=== PATIENT | female | born 1950 | race Caucasian/White ===

== ENCOUNTER 2024-07-29 09:28 | Inpatient (IN) | payer MEDICARE, OTHER ==
[2024-07-29] MEDS ORDERED: Melatonin 3 MG Tab PO PRN (15:41)
[2024-07-29] MEDS ORDERED: Bisacodyl 10 MG Supp RECTAL PRN (15:44)
[2024-07-29] MEDS ORDERED: oxyCODONE 5 MG Tab PO PRN ×2 (15:44)
[2024-07-29] MEDS ORDERED: Scopalamine 1mg/3day Transdermal Patch TOP PRN (15:44)
[2024-07-29] MEDS ORDERED: Magnesium Hydroxide 400 MG/5 ML Susp 30 ML Cup PO PRN (15:44)
[2024-07-29] MEDS ORDERED: Bisacodyl 5 MG Tab PO PRN (15:44)
[2024-07-29] MEDS: Acetaminophen 325 MG Tab PO SCH (16:28)
[2024-07-29] MEDS: Calcium Carbonate 500 MG Tablet PO SCH (17:43)
[2024-07-29] MEDS: Sennosides/Docusate Sodium 50-8.6 MG Tab PO SCH (20:42)
[2024-07-29] MEDS: Polyethylene Glycol 3350 Powder 17 GM Packet PO SCH (20:42)
[2024-07-30] MEDS: Aspirin 325 MG Tab.EC PO SCH (08:44)
[2024-07-30] MEDS: Lisinopril 5 MG Tab PO SCH (08:45)
[2024-07-30] MEDS: Propranolol 80 MG Cap.ER PO SCH (08:45)
[2024-07-31 06:22] LABS: BASOPHILS ABSOLUTE AUTO 0.1 x10-3/uL (0.0-0.1); BASOPHILS PERCENT AUTO 1.3 % (0.2-1.5); EOSINOPHILS ABSOLUTE AUTO 0.4 x10-3/uL (0.0-0.8); EOSINOPHILS PERCENT AUTO 3.6 % (0.6-8.1); HEMATOCRIT 35.2 % (34.2-48.2); HEMOGLOBIN 12.1 g/dL (11.4-15.5); LYMPHOCYTES ABSOLUTE AUTO 1.5 x10-3/uL (1.0-4.4); MEAN CORPUSCULAR HEMOGLOBIN 30.4 pg (23.9-33.9); MEAN CORPUSCULAR HGB CONC 34.3 g/dL (31.9-34.8); MEAN CORPUSCULAR VOLUME 88.6 fL (76.7-100.5); MONOCYTES PERCENT AUTO 9.9 % (4.4-15.7); NEUTROPHILS ABSOLUTE AUTO 7.1 x10-3/uL (1.5-6.3); NEUTROPHILS PERCENT AUTO 70.2 % (30.8-76.2); PLATELET COUNT,PLT 263 x10(3)uL (151-488); RED BLOOD CELL COUNT 3.97 x10(6)uL (3.60-5.20); RED CELL DISTRIBUTION WIDTH 13.3 % (12.3-16.5); WHITE BLOOD CELL COUNT,WBC 10.2 x10-3/uL (3.0-10.3)
[2024-08-02] MEDS: Acetaminophen 500 MG Tab PO SCH (20:48)
[2024-08-03] MEDS: Polyethylene Glycol 3350 Powder 17 GM Packet PO SCH (08:47)
[2024-08-03] MEDS: Lisinopril 10 MG Tab PO SCH (08:59)
[2024-08-03] MEDS: Ibuprofen 600 MG Tab PO PRN (16:59)
== END 2024-08-06 13:25 | disposition home or self-care (01) | DRG 561 ==
LOC: FB.MS 13:03
PROVIDERS: ADMIT Internal Medicine; ATTEND Family Medicine
DX: Z47.89 Encounter for other orthopedic aftercare (principal); G43.909 Migraine, unspecified, not intractable, without status migrainosus; I10 Essential (primary) hypertension; J44.9 Chronic obstructive pulmonary disease, unspecified; F17.210 Nicotine dependence, cigarettes, uncomplicated; H26.9 Unspecified cataract; F15.90 Other stimulant use, unspecified, uncomplicated; R53.81 Other malaise; Z96.641 Presence of right artificial hip joint; Z88.0 Allergy status to penicillin; Z88.8 Allergy status to other drugs, medicaments and biological substances; Z88.1 Allergy status to other antibiotic agents; Z91.041 Radiographic dye allergy status; Z79.1 Long term (current) use of non-steroidal anti-inflammatories (NSAID); Z79.82 Long term (current) use of aspirin; Z90.89 Acquired absence of other organs; Z98.890 Other specified postprocedural states; Z79.899 Other long term (current) drug therapy; Z98.49 Cataract extraction status, unspecified eye
CPT/HCPCS: 36415; 85025; 97110-GP; 97112-GP; 97116-GP; 97161-GP; 97165-GO; 97530-GO; 97530-GP; 97535-GO; 99304; 99307; 99315; A9270-GY

== ENCOUNTER 2025-05-05 22:41 | Emergency (ER) | payer MEDICARE, OTHER ==
[2025-05-05 23:43] LABS: BASOPHILS ABSOLUTE AUTO 0.1 x10-3/uL (0.0-0.1); EOSINOPHILS ABSOLUTE AUTO 0.2 x10-3/uL (0.0-0.8); EOSINOPHILS PERCENT AUTO 2.5 % (0.6-8.1); MONOCYTES ABSOLUTE AUTO 0.8 x10-3/uL (0.3-1.0)
[2025-05-05 23:50] LABS: BLOOD UREA NITROGEN,BUN 20 mg/dL (7-18); CHLORIDE,CL 107 mmol/L (100-110); EST CRCL DRUG DOSING (CG) 51.83 mL/min; ESTIMATED GFR 67 mL/min (>60); GLUCOSE RANDOM 102 mg/dL (80-116)
[2025-05-05 23:55] LABS: A/G RATIO 1.0; PROTEIN TOTAL,TP 7.1 g/dL (6.0-8.0)
[2025-05-06 00:10] LABS: BASOPHILS PERCENT AUTO 0.8 % (0.2-1.5); LYMPHOCYTES ABSOLUTE AUTO 1.5 x10-3/uL (1.0-4.4); LYMPHOCYTES PERCENT AUTO 18.3 % (18.4-52.1); MEAN PLATELET VOLUME 8.7 fL (7.1-12.4); MONOCYTES PERCENT AUTO 9.8 % (4.4-15.7); NEUTROPHILS ABSOLUTE AUTO 5.7 x10-3/uL (1.5-6.3); NEUTROPHILS PERCENT AUTO 68.6 % (30.8-76.2); PLATELET COUNT,PLT 241 x10(3)uL (151-488); RED BLOOD CELL COUNT 5.14 x10(6)uL (3.60-5.20); RED CELL DISTRIBUTION WIDTH 13.9 % (12.3-16.5); WHITE BLOOD CELL COUNT,WBC 8.4 x10-3/uL (3.0-10.3)
[2025-05-06 00:17] LABS: CARBON DIOXIDE,CO2 25 mmol/L (21-32); CREATININE 0.9 mg/dL (0.55-1.02); POTASSIUM,K 4.1 mmol/L (3.5-5.3); SODIUM,NA 143 mmol/L (135-145)
[2025-05-06 00:17] LABS: APPEARANCE,URINE CLEAR (CLEAR); GLUCOSE,URINE NORMAL (NORMAL); OCCULT BLOOD,URINE MODERATE (NEGATIVE)
[2025-05-06 00:23] LABS: ALANINE AMINOTRANSFERASE,ALT 17 U/L (12-36); ASPARTATE AMNIOTRANSFERASE,AST 16 IU/L (5-25); BILIRUBIN TOTAL 0.3 mg/dL (0.1-1.3)
[2025-05-06 01:08] LABS: SQUAMOUS EPITHELIAL CELLS,UR RARE (NS,R,O)
== END 2025-05-06 01:50 | disposition home or self-care (01) ==
LOC: FB.ED 22:41
DX: R10.12 Left upper quadrant pain (principal); K83.8 Other specified diseases of biliary tract; I10 Essential (primary) hypertension; Z90.710 Acquired absence of both cervix and uterus; Z79.899 Other long term (current) drug therapy; Z79.82 Long term (current) use of aspirin; Z88.0 Allergy status to penicillin; Z88.1 Allergy status to other antibiotic agents; Z91.041 Radiographic dye allergy status; Z88.8 Allergy status to other drugs, medicaments and biological substances
CPT/HCPCS: 36415; 74176; 80053; 81001; 84484; 85025; 93005; 99284; A9270